=== PATIENT | male | born 1980 | race Hispanic/Latino ===

== ENCOUNTER 2017-08-24 11:00 | Emergency (ER) | payer SELFPAY ==
[~2017-08-24] VITALS: Ht 175.3 cm; Wt 83.9 kg
[2017-08-24] MEDS ORDERED: MORPHINE SULFATE 2 MG/ML SYR IV SCH (11:30)
[2017-08-24] MEDS ORDERED: SODIUM CHLORIDE 0.9% 1000ML 1,000 ML IV SCH (11:30)
[2017-08-24] MEDS ORDERED: SODIUM CHLORIDE 0.9% 1000ML 1,000 ML IV STA (11:33)
[2017-08-24] MEDS ORDERED: FAMOTIDINE 20 MG/2 ML VIAL IV STA (11:33)
[2017-08-24] MEDS ORDERED: PIPER-TAZ 3.375 GM 50 ML IV STA (11:33)
[2017-08-24] MEDS ORDERED: ONDANSETRON HCL INJ 2 MG/ML VIAL IV SCH (11:45)
[2017-08-24 11:49] LABS: BASOPHILS % 0.3 % (0.0-1.0); EOSINOPHILS % 0.1 % (0.0-6.0); HEMATOCRIT 42.6 % (38.2-49.6); HEMOGLOBIN 15.4 g/dL (14.0-18.0); LYMPHOCYTES # (AUTO) 1.6 (1.0-3.2); LYMPHOCYTES % 23.2 % (18.0-39.1); MEAN CORPUSCULAR HEMOGLOBIN 32.1 pg (28-32); MEAN CORPUSCULAR HGB CONC 36.2 g/dL (31-35); MEAN CORPUSCULAR VOLUME 88.8 fL (81-99); MONOCYTES # (AUTO) 0.2 (0.2-0.8); MONOCYTES % 3.3 % (4.4-11.3); NEUTROPHILS # (AUTO) 4.9 (2.1-6.9); NEUTROPHILS % 72.7 % (38.7-80.0); PLATELET COUNT 304 x10e3/uL (140-360)
[2017-08-24 12:02] LABS: BILIRUBIN,URINE NEGATIVE (NEGATIVE); CLARITY,URINE HAZY (CLEAR); COLOR,URINE YELLOW (YELLOW); KETONES,URINE 2+ (NEGATIVE); LEUKOCYTE ESTERASE ,URINE TRACE (NEGATIVE); NITRITE,URINE NEGATIVE (NEGATIVE); PROTEIN,URINE DIPSTICK 1+ (NEGATIVE); URINE UROBILINOGEN 0.2 mg/dL (0.2 - 1)
[2017-08-24 12:17] LABS: BACTERIA,URINE FEW /HPF; EPITHELIAL CELLS,URINE FEW /LPF; RBC,URINE 0-5 /HPF (0-5)
[2017-08-24 12:25] LABS: ALANINE AMINOTRANSFERASE 73 IU/L (0-55); ALBUMIN 4.4 g/dL (3.5-5.0); ALBUMIN/GLOBULIN RATIO 1.2 (0.8-2.0); ALKALINE PHOSPHATASE 62 IU/L (40-150); ANION GAP 16.6 mmol/L (8-16); BLOOD UREA NITROGEN 12 mg/dL (7-26); BUN/CREATININE RATIO 13 (6-25); CALCIUM 9.9 mg/dL (8.4-10.2); CARBON DIOXIDE 22 mmol/L (22-29); CHLORIDE 102 mmol/L (98-107); CREATININE, SERUM 0.95 mg/dL (0.72-1.25); EST GLOMERULAR FILTRATION RATE > 60 ML/MIN (60-); GLUCOSE 128 mg/dL (74-118); LIPASE 8 U/L (8-78); POTASSIUM 3.6 mmol/L (3.5-5.1); SODIUM 137 mmol/L (136-145)
--- NOTE | 2017-08-24 14:27 | Diagnostic Imaging Report ---
EXAM: Right Upper Quadrant Ultrasound INDICATION: Abdominal pain COMPARISON: None. TECHNIQUE: Transverse and longitudinal images of the right upper abdomen were obtained. FINDINGS: Liver: Size: 15.2 cm in the right midclavicular line, normal Appearance: Normal echogenicity, smooth contour Mass: No focal masses Gallbladder: Stones/Sludge: Minimal sludge Wall: 0.3 cm Appearance: No pericholecystic fluid or hydrops. Sonographic Martinez's Sign: Negative Bile Ducts: Intrahepatic Ducts: No dilatation Extrahepatic Ducts: Common bile duct measures 0.4 cm, no dilatation Pancreas: Incompletely visualized due to overlying bowel gas, but no abnormality identified involving the visualized portions of the pancreas. Right Kidney: Size: 11.4 x 5.1 x 5.2 cm Echogenicity: Normal Parenchymal thickness: Normal Collecting system: No hydronephrosis Stones: None Cyst/Mass: None Vessels: Aorta: Visualized portions are normal Inferior Vena Cava: Visualized portions are normal Main Portal Vein: 0.6 cm, normal size with hepatopetal flow. Free Fluid: No ascites or pleural effusion IMPRESSION: Minimal gallbladder sludge. Otherwise normal ultrasound. Signed by: Dr. Daquan Martinez M.D. on 08/24/2017 2:24 PM
[2017-08-24 15:53] VITALS: BP 120/84
== END 2017-08-24 16:00 | disposition home or self-care (01) ==
LOC: ER 11:00
DX: R10.11 Right upper quadrant pain (principal); K80.50 Calculus of bile duct without cholangitis or cholecystitis without obstruction
CPT/HCPCS: 36415; 76705; 80053; 81001; 83690; 85025; 99284; J2270; J2405; J2543; J7030